=== PATIENT | female | born 1995 | race Caucasian/White ===

== ENCOUNTER 2018-09-12 00:18 | Emergency (ER) | payer OTHER ==
[~2018-09-12] VITALS: Ht 165.1 cm; Wt 60.8 kg
[2018-09-12 00:23] VITALS: Ht 165.1 cm; Wt 60.8 kg
[2018-09-12 01:11] LABS: BASOPHIL % 1.5 % (0-2); PLATELET COUNT 240 x10^3mcL (130-400); RED CELL DISTRIBUTION WIDTH 14.5 % (11.5-14.5)
[2018-09-12 01:24] LABS: CALCIUM 8.6 mg/dL (8.5-10.1); CARBON DIOXIDE 25.7 mmol/L (21-32); CHLORIDE SERUM 105 mmol/L (98-107); CREATININE SERUM 0.7 mg/dL (0.6-1.0); GFR1 > 60 mL/min; GLUCOSE SERUM 91 mg/dL (74-106); POTASSIUM SERUM 3.9 mmol/L (3.5-5.1); SODIUM SERUM 141 mmol/L (136-145)
[2018-09-12 01:29] LABS: ALBUMIN 4.1 g/dL (3.4-5.0); ALKALINE PHOSPHATASE 62 U/L (46-116); ALT/SGPT 17 U/L (14-59); AST/SGOT 8 U/L (15-37); BILIRUBIN TOTAL 0.32 mg/dL (0.20-1.00); LIPASE 166 IU/L (73-393); TOTAL PROTEIN, SERUM 7.6 g/dL (6.4-8.2)
[2018-09-12 03:53] VITALS: BP 103/62
== END 2018-09-12 03:54 | disposition home or self-care (01) ==
LOC: ED 00:18
PROVIDERS: Emergency Medicine
DX: R10.11 Right upper quadrant pain (principal)
CPT/HCPCS: J1885; J2405; Q0092